=== PATIENT | male | born 1960 | race Caucasian/White ===

== ENCOUNTER 2016-04-25 13:57 | Emergency (ER) | payer OTHER ==
[2016-04-25 14:07] VITALS: BP 139/96; PULSE 102; TEMP 98.7; BMI 32.9
--- NOTE | 2016-04-25 14:13 | PDOC ---
History of Present Illness - General Chief Complaint: Allergic Reaction Stated Complaint: ALLERGIC REACTION Time Seen by Provider: 04/25/16 14:13 - History of Present Illness Initial Comments: 04/25/16 14:36 Chief complaint: ALLERGIC reaction History of present illness: The patient states that after eating avocado and drinking fluids juice, skin became itchy and he had welts on his neck and upper arms. There was also some irritation of the throat and shortness of breath. The patient has had similar reactions in the past after eating "any kind of food". He is not able to identify the exact foods that bring on his reaction, though he mentions bananas, grapes, watermelon, and avocados. He has never had an anaphylactic reaction or angioedema by history. He also began omeprazole this morning for symptoms of reflux prescribed by his doctor, first dose of 20 mg around 8 AM. Review of systems: As above. Otherwise, no chest pain, shortness of breath, abdominal pain, nausea, vomiting, diarrhea, visual or focal neurologic symptoms , unsteadiness of gait Past medical history: ALLERGIC reactions as noted above. GERD. Elevated blood pressure occasionally noted but has been normal lately without therapy Social history: 1 or 2 beers several times per week. Drink every day. No tobacco or nonprescription drugs. Physical exam: Alert and oriented well-developed well-nourished no acute distress cheerful and cooperative Afebrile, vital signs normal PERRLA, fundi benign, ENT clear. Specifically, there is no swelling or edema noted in the oropharynx, lips, tongue, or face. Neck supple without bruit mass or nodes Chest clear throughout bilaterally. No wheezes rales or rhonchi CV S1 and S2 normal without murmur or gallop pulses full and symmetric no JVD or edema no bruits Abdomen soft nontender without mass or organomegaly. Bowel sounds normal Skin exam reveals very minimal erythema of the face, neap of the neck, and upper arms. There are several scattered urticarial lesions on the upper arms Impression: Minor ALLERGIC reaction consisting of itching, urticaria, no sign of angioedema. Most likely due to ingestion of some type of fruit, no occluded be an ALLERGY to omeprazole, since the first dose was this morning Plan: Benadryl, Zantac, and observation. Patient appears to be improving already before therapy. Avoid foods and stop omeprazole. Return to ER if there is any further symptomatology. Patient fully ambulatory and without symptoms at time of discharge to follow-up as directed. To continue Benadryl as needed. Past History - Past Medical History Allergies/Adverse Reactions: Allergies Allergy/AdvReac Type Severity Reaction Status Date / Time "ALL FRUITS" Allergy Itching Uncoded 04/25/16 14:00 Home Medications: Ambulatory Orders Omeprazole 20 mg PO DAILY 04/25/16 Other medical history: DENIES - Psycho/Social/Smoking Cessation Hx Anxiety: No Suicidal Ideation: No Smoking History: Never smoked Hx Alcohol Use: No Drug/Substance Use Hx: No *Physical Exam - Vital Signs Last Vital Signs Temp Pulse Resp BP Pulse Ox 98.7 F 102 H 20 139/96 99 04/25/16 14:00 04/25/16 14:00 04/25/16 14:00 04/25/16 14:00 04/25/16 14:00 Medical Decision Making - Medical Decision Making 04/25/16 15:11 Patient much improved. No further itching. Urticaria resolved. Oropharynx, lungs clear. Discharged fully ambulatory, in no discomfort and asymptomatic to follow-up as needed. *DC/Admit/Observation/Transfer Diagnosis at time of Disposition: Urticaria - Discharge Dispostion Disposition: HOME Condition at time of disposition: Improved Admit: No - Patient Instructions Printed Discharge Instructions: DI for General Allergic Reactions Additional Instructions: Avoid foods. Stop omeprazole. Return to ER if there are any further symptoms. Otherwise follow-up with your primary physician. Continue Benadryl 25 mg every 6 hours for 24 hours or as needed.
[2016-04-25] MEDS ORDERED: RANITIDINE HCL 150 MG TABLET (FP) PO ONE (14:14)
[2016-04-25] MEDS ORDERED: RANITIDINE HCL 150 MG TABLET (FP) ONE (14:20)
== END 2016-04-25 15:29 | disposition home or self-care (01) ==
LOC: FER 13:57
PROC: 3E023GC Introduction of Other Therapeutic Substance into Muscle, Percutaneous Approach (ICD-10-PCS; principal; 2016-04-25)
DX: L50.9 Urticaria, unspecified (principal)
CPT/HCPCS: 96372; 99282-25

== ENCOUNTER 2020-09-25 07:44 | Emergency (ER) | payer OTHER ==
[2020-09-25 07:50] VITALS: BP 135/100; PULSE 71; TEMP 98.3; BMI 34.5
[2020-09-25] MEDS ORDERED: ACETAMINOPHEN INJECTION 0 ML IVPB ONE (07:51)
[2020-09-25] MEDS ORDERED: MAG HYDROX/AL HYDROX/SIMETH 30 ML UNIT-DOSE CUP ONE (07:51)
[2020-09-25] MEDS ORDERED: KETOROLAC TROMETHAMINE 30 MG/1 ML VIAL IM ONE (07:58)
[2020-09-25] MEDS ORDERED: LIDOCAINE 5% TOPICAL PATCH TP ONE (07:58)
[2020-09-25] MEDS ORDERED: LIDOCAINE 5% TOPICAL PATCH ONE (08:13)
[2020-09-25] MEDS ORDERED: KETOROLAC TROMETHAMINE 30 MG/1 ML VIAL ONE (08:13)
[2020-09-25] MEDS ORDERED: LIDOCAINE PATCH REMOVAL MC SCH (22:00)
== END 2020-09-25 09:02 | disposition home or self-care (01) ==
LOC: FER 07:44
PROC: 3E023GC Introduction of Other Therapeutic Substance into Muscle, Percutaneous Approach (ICD-10-PCS; principal; 2020-09-25)
DX: M54.5 Low back pain (principal)
CPT/HCPCS: 99284-25

== ENCOUNTER 2022-10-29 17:26 | Emergency (ER) | payer OTHER ==
[2022-10-29 17:48] VITALS: TEMP 98.3; BMI 32.5
[2022-10-29] MEDS ORDERED: SODIUM CHLORIDE 0.9% 1000 ML INFUS.BAG IV ONE (18:06)
[2022-10-29] MEDS ORDERED: METOCLOPRAMIDE HCL INJECTION 10 MG/2 ML VIAL IVPUSH ONE (18:06)
[2022-10-29] MEDS ORDERED: ACETAMINOPHEN 1000 MG/100 ML BAG IVPB ONE (18:06)
[2022-10-29] MEDS ORDERED: ACETAMINOPHEN INJECTION 100 ML IVPB ONE (18:17)
[2022-10-29] MEDS ORDERED: METOCLOPRAMIDE HCL INJECTION 10 MG/2 ML VIAL ONE (18:17)
[2022-10-29 18:21] LABS: HEMATOCRIT 44.5 % (35.4-49); MCH 31.6 pg (25.7-33.7); MCHC 33.8 g/dl (32.0-35.9); MEAN CELL VOLUME 93.6 fl (80-96); MEAN PLT VOLUME 7.7 fl (7.5-11.1); PLATELET COUNT 217.9 10^3/uL (134-434); RBC 4.75 10^6/uL (4.00-5.60); RDW 13.5 % (11.9-15.9); WHITE BLOOD COUNT 7.1 10^3/uL (4.0-10.8)
[2022-10-29 18:27] LABS: INR 1.06 (0.83-1.09); PROTHROMBIN TIME (PATIENT) 12.3 SEC (9.7-13.0)
[2022-10-29 18:29] LABS: ACTIVATED PTT 31.8 SECONDS (25.2-36.5)
[2022-10-29 18:42] LABS: PLATELET ESTIMATE ADEQUATE
[2022-10-29 18:53] LABS: ALBUMIN 4.4 g/dl (3.4-5.0); BLOOD UREA NITROGEN 11.1 mg/dl (7-18); CALCIUM 8.9 mg/dl (8.5-10.1); CREATININE 0.9 mg/dl (0.6-1.3); MAGNESIUM 2.1 mg/dL (1.8-2.4); POTASSIUM 3.9 mmol/L (3.5-5.1); SGOT/AST 19.8 U/L (15-37); SGPT/ALT 19.9 U/L (7-52); TOT PROT 7.6 g/dl (6.4-8.2)
[2022-10-29] MEDS ORDERED: ASPIRIN 81 MG CHEWABLE TABLETS PO ONE (19:01)
[2022-10-29] MEDS ORDERED: ASPIRIN 81 MG CHEWABLE TABLETS ONE (19:05)
[2022-10-29 19:55] LABS: BILIRUBIN,TOTAL 0.5 mg/dL (0.2-1)
[2022-10-29 19:59] LABS: N-TERMINAL BNP 78.4 pg/ml (5-125)
[2022-10-29 20:27] VITALS: RESP 14
[2022-10-29 21:15] VITALS: BP 142/75; PULSE 61
== END 2022-10-29 21:10 | disposition home or self-care (01) ==
LOC: FER 17:26
PROC: 3E033NZ Introduction of Analgesics, Hypnotics, Sedatives into Peripheral Vein, Percutaneous Approach (ICD-10-PCS; principal; 2022-10-29)
PROC: 3E033GC Introduction of Other Therapeutic Substance into Peripheral Vein, Percutaneous Approach (ICD-10-PCS; 2022-10-29)
DX: R07.89 Other chest pain (principal); R11.0 Nausea; R51.9 Headache, unspecified
CPT/HCPCS: 36415; 70450-TC; 71045-TC-FY; 80053; 83735; 83880; 84484; 85027; 85610; 85730; 93005; 96374; 96375; 99285-25

== ENCOUNTER 2023-01-29 08:47 | Emergency (ER) | payer OTHER ==
[2023-01-29 09:01] VITALS: BP 147/83; PULSE 68; RESP 20; TEMP 98.3; BMI 32.5
[2023-01-29] MEDS ORDERED: CYCLOBENZAPRINE HCL 5 MG TABLET ONE (09:31)
[2023-01-29] MEDS ORDERED: KETOROLAC TROMETHAMINE 30 MG/1 ML VIAL ONE (09:31)
[2023-01-29] MEDS ORDERED: LIDOCAINE 5% TOPICAL PATCH ONE (09:31)
[2023-01-29] MEDS: KETOROLAC TROMETHAMINE 30 MG/1 ML VIAL IM ONE (09:37)
[2023-01-29] MEDS: CYCLOBENZAPRINE HCL 10 MG TABLET (FP) PO ONE (09:37)
[2023-01-29] MEDS: LIDOCAINE 5% TOPICAL PATCH TP ONE (09:37)
[2023-01-29] MEDS ORDERED: LIDOCAINE PATCH REMOVAL MC ONE (22:00)
== END 2023-01-29 10:01 | disposition home or self-care (01) ==
LOC: FER 08:47
PROC: 3E0233Z Introduction of Anti-inflammatory into Muscle, Percutaneous Approach (ICD-10-PCS; principal; 2023-01-29)
DX: M54.16 Radiculopathy, lumbar region (principal)
CPT/HCPCS: 96372; 99284-25